=== PATIENT | female | born 1995 | race African-American/Black ===

== ENCOUNTER 2018-02-05 13:40 | Outpatient (CLI) | payer MEDICAID ==
--- NOTE | 2018-02-05 15:14 | ULT ---
PELVIC SONOGRAM TRANSABDOMINAL AND TRANSVAGINAL IMAGING WITH DUPLEX EVALUATION: HISTORY: Pelvic pain. FINDINGS: Urinary bladder is incompletely distended. Uterus slightly retroverted with a homogeneous echotextur e, measuring 9.5 cm. Endometrium is 0.5 cm. Physiologic amount of free fluid in the cul-de-sac. T he right ovary is 3.8 cm and the left is 4.3 cm. Each has follicles and demonstrates good color and spectral Doppler flow. IMPRESSION: Retroverted uterus. No significant abnormalities are demonstrated. POS: [facility]
== END 2018-02-05 13:41 | disposition home or self-care (01) ==
LOC: BICULT 13:40
PROVIDERS: ATTEND Nurse Practitioner Women's Health
DX: R10.2 Pelvic and perineal pain (principal); N85.4 Malposition of uterus
CPT/HCPCS: 76856